=== PATIENT | female | born 1965 | race Caucasian/White ===

== ENCOUNTER 2025-01-23 10:49 | Emergency (ER) | payer MEDICARE ==
[~2025-01-23] VITALS: Ht 160 cm; Wt 77.3 kg
[2025-01-23 10:53] VITALS: TEMP 98.4
--- NOTE | 2025-01-23 10:57 | Physician Documentation ---
History of Present Illness ~ Chief Complaint: Wrist pain Stated Complaint: L WRIST INJURY/FALL Time Seen by MD: 10:56 HPI This 59-year-old female presents to the emergency department after a fall onto the left wrist with resultant pain and swelling noted. Denies loss of c onsciousness or hitting head. Medication Reconciliation Allergies: Uncoded Allergies: FLUROQUINOLONES (Allergy, Unknown, 01/23/25) NARCOTICS (Allergy, Unknown, 01/23/25) Review of Systems ROS As stated above in the HPI, otherwise all systems are reviewed and negative. Physical Exam Vital Signs: Temperature: 98.4, Source: Oral, Heart Rate: 87, Respiratory Rate: 16, BP: 188/86, Pulse Oximetry: 97, Weight: 77.270 Physical Exam General: Alert, no apparent distress. HEENT: PERRL, EOMI, no injection, moist mucous membranes. Neck: Full range of motion. Respiratory: Lungs clear, no respiratory distress. Chest: No accessory muscle use. Cardiovascular: Regular rate and rhythm, no murmurs. Gastrointestinal: Soft, nontender, nondistended. Bowels sounds present. Extremities: Obvious deformity with swelling around the left wrist. Strong radial pulse with brisk cap refill. Neurologic: Oriented x4. Psychiatric: Normal mood and affect. Skin: Normal color, warm and dry. No edema, no ecchymosis. Procedures Procedures Hematoma block accomplished with 4 mL 1% lidocaine. Reduction of impacted radius accomplished. Sugar-tong splint placed to left wrist. Patient tolerated well CMS intact after. Progress Results/Orders Results/Orders Orders - DENEEN HARPER NP Ortho Orders (01/23/25 ) Completed Orders - DENEEN HARPER NP Hydrocodone/Apap 10/325 ([place] 10/325mg (01/23/25 11:20) Ketorolac Trometh 15mg/Ml Vial (Toradol (01/23/25 11:20) Lidocaine 1% 30ml Vial (Xylocaine 1% Via (01/23/25 11:18) Vital Signs 01/23/25 10:53 Temp 98.4 Pulse 87 Resp 16 B/P (MAP) 188/86 Pulse Ox 97 EKG/XRAY/CT/US/VASC/MRI Bone/Soft Tissue X-Ray (Spine) : Additional Comment DIAGNOSTIC RADIOLOGY Patient: RAJAN JOE Medical Record: [id number] [facility] : 1965, Age: 59 Sex: Female Location: ER Patient Status: [facility] ER Service Date/Time: 01/23/25/ 1056 Ordering Physician: JESSA VALERIO DO Exam: WRIST, COMPLETE (3VW MIN) DI WRIST, COMPLETE (3VW MIN), INDICATION: WRIST PAIN TECHNICAL DATA: Frontal , oblique, and lateral views were obtained of the right wrist. COMPARISON: None FINDINGS: Community displaced distal radius fracture and ulnar styloid fracture. Joint spaces are maintained. Alignment is anatomic. Ulnar variance is positive. Soft tissues are within normal limits. IMPRESSION: Communied displaced distal radius fracture and ulnar styloid fracture. Electronically Signed by:LIOR VAZQUEZ MD Date & Time: 01/23/25 1122 Dictated by: LIOR VAZQUEZ MD Dictation date and time: 01/23/25 1107 Primary Care Provider: NO PRIMARY CARE PROVIDER cc: JESSA VALERIO DO ~ Medical Decision Making General Diff Dx:Considerations: Include: Abrasion, Contusion, Fracture, Hematoma, Neurovascular injury, Sprain Departure Time of Disposition: 11:35 Impression: Primary Impression: Closed fracture distal radius and ulna Qualified Codes: S52.502A - Unspecified fracture of the lower end of left radius, initial encounter for closed fracture; S52.602A - Unspecified fracture of lower end of left ulna, initial encounter for closed fracture Additional Impression: Fall Qualified Codes: W19.XXXA - Unspecified fall, initial encounter Discharge Instructions: Cast or Splint Care, Adult, Wrist Fracture Treated With Immobilization Additional Instructions: See your primary care provider within the next couple days and request a referral to ortho for an urgent followup. Leave splint in place. Rest, ice, elevate. Tylenol and Ibuprofen per label instructions as needed for pain. Referrals: NO PRIMARY CARE PROVIDER (PCP) RUBY DE LEON Jr., MD Education Educated: Patient Educated regarding: diagnosis, treatment, prognosis, need for follow up Signature Scribe Signature: no scribe Attestation: The note accurately reflects work and decisions made by me.Deneen Becker NP 01/23/25 11:40 DENEEN HARPER NP January 23, 2025 10:57
--- NOTE | 2025-01-23 11:24 | RADIOLOGY REPORT ---
DI WRIST, COMPLETE (3VW MIN), INDICATION: WRIST PAIN TECHNICAL DATA: Frontal , oblique, and lateral views were obtained of the right wrist. COMPARISON: None FINDINGS: Community displaced distal radius fracture and ulnar styloid fracture. Joint spaces are maintained. A lignment is anatomic. Ulnar variance is positive. Soft tissues are within normal limits. IMPRESSION: Communied displaced distal radius fracture and ulnar styloid fracture.
[2025-01-23] MEDS: ketorolac trometh 15mg/ml vial 15 MG/ML ML IM ONE (11:26)
[2025-01-23] MEDS: HYDROcodone/acetaminophen 10/325mg tab PO ONE (11:26)
[2025-01-23] MEDS: LIDOcaine 1% 30ml preserv. free vial IJ STA (11:55)
[2025-01-23 12:29] VITALS: BP 169/99; PULSE 67; RESP 14; O2SAT 97
== END 2025-01-23 12:42 | disposition home or self-care (01) ==
LOC: ER 10:49
DX: S52.612A Displaced fracture of left ulna styloid process, initial encounter for closed fracture (principal); W19.XXXA Unspecified fall, initial encounter; Y93.89 Activity, other specified; Y92.89 Other specified places as the place of occurrence of the external cause; Y99.8 Other external cause status
CPT/HCPCS: 25605; 73110; 99284; A4565; A6446; A6449; Z7610

== ENCOUNTER 2025-01-26 14:40 | Emergency (ER) | payer MEDICARE ==
[~2025-01-26] VITALS: Ht 160 cm; Wt 67.5 kg
[2025-01-26 15:00] VITALS: TEMP 98.6
--- NOTE | 2025-01-26 15:29 | Physician Documentation ---
History of Present Illness ~ Chief Complaint: Arm Pain Stated Complaint: CAST RECHECK Time Seen by MD: 15:21 HPI This 59-year-old female presents with request for a splint adjustment due to splint that was placed several days ago being uncomfortable on her arm, patient reports she has a forearm fracture after a fall. Patient reports no pain to the arm and no loss of feeling or movement in her fingers distal to the injury. Medication Reconciliation Allergies: Uncoded Allergies: FLUROQUINOLONES (Allergy, Unknown, 01/23/25) NARCOTICS (Allergy, Unknown, 01/23/25) Review of Systems ROS Splint discomfort as stated above in the HPI, otherwise all systems are reviewed and negative. Physical Exam Vital Signs: Temperature: 98.6, Source: Temporal, Heart Rate: 85, Respiratory Rate: 15, BP: 146/87, Pulse Oximetry: 98, Weight: 67.500 Physical Exam VITALS: Reviewed and as above. GENERAL: Alert, nontoxic appearing, no apparent distress. RESPIRATORY: No increased work of breathing, no respiratory distress, speaking in full clear sentences MUSCULOSKELETAL: Left arm in splint, brisk capillary refill to fingers distal to injury, NEURO: Fingers neurovascularly intact distal to injury Progress Results/Orders Results/Orders Orders - ELIDA WALDRON FIRE SUPERVISOR Ortho Orders (01/26/25 ) Vital Signs 01/26/25 01/26/25 01/26/25 15:00 16:43 16:43 Temp 98.6 Pulse 85 85 85 Resp 15 15 15 B/P (MAP) 146/87 146/87 (106) 146/87 Pulse Ox 98 98 98 Medical Decision Making Findings This 59-year-old female presented with discomfort to the splint that was placed on her left arm falling a fall in which she sustained a distal radius fracture, there was not significant pain to the arm and the arm and hand was neurovascularly intact. The splint was removed, arm was inspected with ecchymosis to the distal forearm, a new splint was placed by ED orthopaedic physician assistant. Arm was neurovascularly intact prior to and after splint placement. Patient repo rted new splint as much more comfortable than previous splint. Physical exam was benign and patient is appropriate for outpatient follow up as previously scheduled with orthopedist. Patient provided return to care precautions. General Diff Dx:Considerations: Include: Abrasion, Contusion, Laceration, Neurovascular injury, Other (Compartment syndrome) Departure Disposition: HOME / SELF CARE / HOMELESS Impression: Primary Impression: Closed fracture distal radius and ulna Qualified Codes: S52.502D - Unspecified fracture of the lower end of left radius, subsequent encounter for closed fracture with routine healing; S52. 602D - Unspecified fracture of lower end of left ulna, subsequent encounter for closed fracture with routine healing Condition: Improved Discharge Instructions: Extremity Fracture Additional Instructions: Follow up with the orthopedist as scheduled. Please return to the emergency department for any new or worsening concerning symptoms. Referrals: NO PRIMARY CARE PROVIDER (PCP) Education Educated: Patient Educated regarding: diagnosis, treatment, prognosis, need for follow up Signature Scribe Signature: No scribe Attestation: The note accurately reflects work and decisions made by me.VELASQUEZ Nunez 01/27/25 02:06 ELIDA WALDRON January 26, 2025 15:29
[2025-01-26 16:43] VITALS: BP 146/87; PULSE 85; RESP 15; O2SAT 98
== END 2025-01-26 16:46 | disposition home or self-care (01) ==
LOC: ER 14:41
DX: S52.92XD Unspecified fracture of left forearm, subsequent encounter for closed fracture with routine healing (principal); S52.202D Unspecified fracture of shaft of left ulna, subsequent encounter for closed fracture with routine healing; X58.XXXD Exposure to other specified factors, subsequent encounter
CPT/HCPCS: 29125; 99283; A4565; A6446; A6449

== ENCOUNTER 2025-01-30 09:32 | Emergency (ER) | payer MEDICARE ==
[~2025-01-30] VITALS: Ht 160 cm; Wt 77.3 kg
[2025-01-30 09:42] VITALS: BP 186/80; PULSE 86; RESP 18; O2SAT 98
--- NOTE | 2025-01-30 11:36 | Physician Documentation ---
History of Present Illness ~ Chief Complaint: See Chief Complaint Stated Complaint: LEFT CAST ADJUSTMENT Time Seen by MD: 10:41 [facility] 59-year-old female presents to the ED with a complaint of poorly fitting splint on her left arm. She fell recently and has a fracture but has been unable to see the orthopedic surgeon. That the splint seems to have slid down her arm. Tetanus within 5 years: Yes Medication Reconciliation Allergies: Uncoded Allergies: FLUROQUINOLONES (Allergy, Unknown, 01/23/25) NARCOTICS (Allergy, Unknown, 01/23/25) Review of Systems All Other Systems at this time: Reviewed and Negative ROS As stated above in the HPI, otherwise all systems are reviewed and negative. Constitutional: Reports: no symptoms reported Physical Exam Vital Signs: Temperature: 98.1, Heart Rate: 86, Respiratory Rate: 18, BP: 186/80, Pulse Oximetry: 98, Weight: 77.270 Oxygen Flow Rate: 0 Physical Exam General: Alert, no apparent distress. HEENT: PERRL, EOMI, no injection, moist mucous membranes. Extremities: Left upper extremity is notable for a poorly fitting splint Psychiatric: Normal mood and affect. Skin: Normal color, warm and dry. No edema, no ecchymosis. Progress Results/Orders Results/Orders Vital Signs 01/30/25 01/30/25 09:42 11:51 Temp 98.1 98.1 Pulse 86 Resp 18 B/P (MAP) 186/80 Pulse Ox 98 O2 Flow Rate 0 Medical Decision Making Findings Splint was placed CSM is intact. She will follow up in the outpatient setting Orthopedics. states she has already been referred via her primary care Elbow Diff Dx:Considerations: Include: Abrasion, Arthritis, Contustion, DJD, Fracture-humerus, Fracture-radial head, Fracture-radius, Fracture-ulna, Gout, Hematoma, Laceration, Neurovascular injury, Olecranon bursitis, Open fracture, Osteomyelitis, Radial head subluxation, Rheumatoid arthritis, Septic, Sprain, Ulcer, Other Departure Disposition: 01 HOME / SELF CARE / HOMELESS Impression: Primary Impression: Closed fracture distal radius and ulna Condition: Stable Additional Instructions: Follow up with your referral that she received via your primary care doctor in order to go see orthopedic surgeon for further evaluation. Referrals: NO PRIMARY CARE PROVIDER (PCP) Education Educated: Patient Educated regarding: diagnosis Signature Scribe Signature: G Attestation: The note accurately reflects work and decisions made by me.Donavon Mercado - ZANDRA 01/30/25 15:36 DONAVON MERCADO NP January 30, 2025 11:36
[2025-01-30 11:51] VITALS: TEMP 98.1
== END 2025-01-30 11:53 | disposition home or self-care (01) ==
LOC: ER 09:33
DX: S52.102A Unspecified fracture of upper end of left radius, initial encounter for closed fracture (principal); S52.602A Unspecified fracture of lower end of left ulna, initial encounter for closed fracture; X58.XXXA Exposure to other specified factors, initial encounter; Y93.89 Activity, other specified; Y92.89 Other specified places as the place of occurrence of the external cause; Y99.8 Other external cause status
CPT/HCPCS: 29125; 99281; 99283

== ENCOUNTER 2025-02-14 07:44 | Day surgery (SDC) | payer MEDICARE, OTHER ==
[2025-02-14] VITALS (8 sets, daily range): BP systolic 108–146; BP diastolic 53–73; PULSE 54–82; RESP 7–16; TEMP 98.3; O2SAT 94–97
[~2025-02-14] VITALS: Ht 160 cm; Wt 77.2 kg
[2025-02-14] MEDS: ceFAZolin 2gm/dext,iso 50mL 50 ML IV ONE (05:30)
[~2025-02-14 07:44] MED LIST: BUPIVAcaine/PF 2.5mg/ml (0.25%) 10ml vial ONE; EST1T PO; LIDOcaine 2% (20mg/ml) 5ml vial ONE; MAGN100T PO; PROG200C11 PO; [UNRECOGNIZED DRUG - OTHER] PO
--- NOTE | 2025-02-14 08:41 | ELECTROCARDIOGRAPH REPORT ---
[facility] Test Date: 2025-02-14 Test Time: 08:37:35 Pat Name: RAJAN JOE Department: [facility] Patient ID: [facility]-[id number] Room: Gender: F Family Assistant: EVGENY : 1965 Requested By: HEIDI NOEL Order Number: [id number] Reading MD: Dr. Luz Xie Measurements Intervals [place] Rate: 66 P: 14 OK: 161 QRS: 49 QRSD: 100 T: 14 QT: 419 QTc: 439 Interpretive Statements Sinus rhythm Electronically Signed On 02-14-2025 20:56:[address] Luz Xie Please click the below link to view image of tracing.
[2025-02-14] MEDS ORDERED: ringers solution, lacted 1,000 ML IV SCH (09:00)
[2025-02-14] MEDS ORDERED: ondansetron/PF 4mg/2ml inj IV PRN (09:00)
[2025-02-14] MEDS ORDERED: hydrALAZINE 20mg/ml inj. IV PRN (09:00)
[2025-02-14] MEDS ORDERED: morphine 4 MG/ML inj SYRINge IV PRN (09:00)
[2025-02-14] MEDS ORDERED: fentaNYL/PF 50MCG/1 ML 2ML syringe IV PRN ×2 (09:00)
[2025-02-14] MEDS ORDERED: morphine 2 MG/ML inj. syringe IV PRN (09:00)
[2025-02-14] MEDS ORDERED: labetalol 20mg/4ml (5mg/ml) syringe IV PRN (09:00)
--- NOTE | 2025-02-14 09:03 | ANESTHESIA RECORDS ---
Nerve Block Providers to CC CC: RUBY DE LEON Jr., MD ~ Diagnosis: Nerve Block requested by: RUBY DE LEON Jr., MD Neuraxial/Peripheral Nerve Block requested for Post-operative analgesia by Physician above DIAGNOSIS: Post-operative pain. (Body Area) Shoulder: [ ] Arm: [ ] Hand: [___LEFT ] Hip: [ ] Knee: [ ] Ankle: [ ] Foot: [ ] Leg: [ ] Abdomen: [ ] Other: [ ] Post-operative pain expected to be/is inadequately managed by oral or IV medicines. Regional anesthetic expected to facilitate rehabilitation and/or discharge from facility. Other:[ _] Procedure Performed: Axillary: Left Time out Done?: Yes Time of Time out: 10:00 Procedure Details: PROCEDURE DETAILS: Risks, benefits and alternatives explained Informed consent obtained, and patient wishes to proceed Conscious sedation with indicated monitors Patient positioned, pertinent anatomy defined, sterile technique used Needle used: [ ] 3 1/8 inch Stimuplex Ultra 22ga [ x] 4 inch Stimuplex Ultra 20ga [ ] 6 inch Stimuplex Ultra 20ga [ ] 6 inch, Quikbloc over the needle catheter set 20ga [ ] 4 inch Quikbloc over the needle catheter set 20ga [ ]Other: [ ] Loss of twitch @ [ 0.4 ]mA [x ] Single Injection [ ] Catheter Ultrasound Guidance Used: [x ] Yes [ ] No Attempts:[ 1 ] Medicines injected: [ ]Clonidine Amt:[ ] [ ]Dexamethasone Amt:[ ] [ x ]Ropivacaine Amt:[ ] [ ]Bupivacaine Amt:[ ] [ ]Lidocaine Amt:[ ] [ ]Exparel 1.33%:[ ] [ ]Epinephrine Amt[ ] [ x ]Other: [___DEXMETOMIDINE 50 MCG ] Intermittent aspiration during local anesthetic administration No symptoms of intraneural or intravenous injection Patient tolerated procedure well Comments Left Axilla is examined with Ultrasound and Axillary vessels.Brachial plexus bundles are identified. Needle near bundle,upon positive motor response to nerve stimulation 30 c. clocal mix is distributed..Spread is noted,ultrasound images are captured. Left [place] brachialis muscle is examined,Musculo cutaneous nerve is identified.. Needle near the nerve bundle,positive stimulation response. Local mix is injected. Ultraound image is captured, documented. ALISSON ENCISO MD Feb 14, 2025 09:03
[2025-02-14] MEDS: famotidine 20mg tablet PO ONE (09:20)
[2025-02-14] MEDS: scopolamine 1MG/72H patch 1 PATCH PATCH.TD.3 TD SCH (09:20)
[2025-02-14] MEDS: ringers solution, lacted 1,000 ML IV SCH (09:21)
[2025-02-14 09:38] LABS: BASOPHILS % (AUTO) 0.4 % (0-1); EOSINOPHILS # (AUTO) 0.4 X10'3 (0-0.9); EOSINOPHILS % (AUTO) 4.9 % (0-6); LYMPHOCYTES # (AUTO) 1.3 X10'3 (1.1-4.8); LYMPHOCYTES % (AUTO) 18.5 % (21-51); MEAN CORPUSCULAR HEMOGLOBIN 27.6 PG (27.0-31.0); MEAN CORPUSCULAR HGB CONC 33.1 g/dL (33.0-36.5); MEAN CORPUSCULAR VOLUME 83.3 FL (78-98); MEAN PLATELET VOLUME 7.3 FL (7.4-10.4); MONOCYTES # (AUTO) 0.7 X10'3 (0-0.9); MONOCYTES % (AUTO) 9.5 % (2-12); NEUTROPHILS # (AUTO) 4.8 X10'3 (1.8-7.7); NEUTROPHILS % (AUTO) 66.7 % (42-75); PRE OP HEMATOCRIT 33.8 % (35.0-45.0); PRE OP HEMOGLOBIN 11.2 g/dL (12.0-16.0); PRE OP PLATELET COUNT 452 X10'3 (140-440); PRE OP WHITE BLOOD COUNT 7.2 10'3 (4.8-10.8); RED BLOOD COUNT 4.06 X10'6 (4.20-5.60); RED CELL DISTRIBUTION WIDTH 15.6 % (11.5-14.5)
[2025-02-14 09:52] LABS: ALBUMIN/GLOBULIN RATIO 0.9 (1.1-1.5); ALKALINE PHOSPHATASE 115 IU/L (46-116); BLOOD UREA NITROGEN 12 MG/DL (7-18); BUN/CREATININE RATIO 21.1 (10.0-20.0); CALCIUM 8.4 MG/DL (8.5-10.1); CHLORIDE 105 MMOL/L (99-107); CREATININE 0.57 MG/DL (0.40-0.90); PRE OP ALT 13 U/L (30-65); PRE OP ANION GAP 10 (8-16); PRE OP AST 15 U/L (10-37); PRE OP BILIRUB, TOTAL 0.2 MG/DL (0.0-1.0); PRE OP GLUCOSE 115 MG/DL (70-104); PRE OP SODIUM 141 MMOL/L (135-145); TOTAL CARBON DIOXIDE 26.5 MMOL/L (24-32); TOTAL PROTEIN 6.4 G/DL (6.4-8.2); eCRCL 86 ML/MIN; eGFR > 90 ML/MIN
[2025-02-14 09:56] LABS: PRE OP POTASSIUM 3.2 MMOL/L (3.4-5.1)
[2025-02-14] MEDS ORDERED: BUPIVAcaine/PF 2.5mg/ml (0.25%) 10ml vial ONE (10:16)
[2025-02-14] MEDS ORDERED: propofol inj 20 ML IV ONE (10:40)
[2025-02-14] MEDS ORDERED: dexamethasone sod phosphate 4mg/ml inj. ONE (10:40)
[2025-02-14] MEDS ORDERED: fentaNYL/PF 50MCG/1 ML 2ML syringe ONE ×2 (10:40→11:31)
[2025-02-14] MEDS ORDERED: acetaminophen 1,000mg/100ml IV 100 ML IV ONE (10:40)
[2025-02-14] MEDS ORDERED: ondansetron/PF 4mg/2ml inj ONE (10:40)
[2025-02-14] MEDS ORDERED: LIDOcaine 2% (20mg/ml) 5ml vial ONE (11:14)
[2025-02-14] MEDS ORDERED: sevoflurane 250ml liquid IH ONE (11:19)
--- NOTE | 2025-02-14 15:05 | OPERATIVE REPORT ---
Operative Report Providers to ~ Date of Procedure: Feb 14, 2025 Pre-Operative Diagnosis: Left distal radius fracture closed Post-Operative Diagnosis SAME as PRE-Op Procedure Performed Left wrist distal radius fracture with articular extension. Surgeon: Benjamin Wallace MD Ict Customer Support Officer None Anesthesiologist: Kaushal Luz Type of Anesthesia: General Findings: Prosthetics\Implants used: Bone bridge standard distal radius plate and screws Estimated Blood Loss: None Specimen Removed: None Description of Procedure: The patient is a 59 year old with an unstable left distal radius fracture that is over 3 weeks old. There was significant shortening and dorsal angulation. Surgery is indicated to improve function and prevent deformity. The risks, benefits, expected results, and possible complications of the planned procedure had been explained to the patient and informed consent obtained. After the block was administered, the tourniquet was inflated on the upper arm and the arm was prepped and draped, an incision was made over the flexor carpi radialis tendon, with an interval in the deeper tissues between it and the radial artery. The pronator Quadratus was elevated off the distal radius, exposing the fracture. The fracture was eventually reduced with traction, instrumentation, and bone clamps. The BONE BRIDGE distal radius locking plate was used, affixed over the fracture, with proximal screws. After confirming position on C-arm, the extra and intra articular fracture was reduced to the plate and held with distal locking screws, stabilizing the articular surface. Final fluoro imaging was done, confirming screw placement and reduction. The wound was irrigated and closed in layers. A sterile dressing was applied, followed by a short arm plaster splint. The tourniquet was released and the patient was returned to the PACU in stable condition. Sponge and needle counts were correct. BENJAMIN WALLACE Jr., MD Feb 14, 2025 15:05
== END 2025-02-14 12:50 | disposition home or self-care (01) ==
LOC: PAS 07:44
PROVIDERS: ATTEND Orthopaedic Surgery Hand Surgery
DX: S52.572A Other intraarticular fracture of lower end of left radius, initial encounter for closed fracture (principal); W01.0XXA Fall on same level from slipping, tripping and stumbling without subsequent striking against object, initial encounter; X58.XXXA Exposure to other specified factors, initial encounter; Y93.89 Activity, other specified; Y92.89 Other specified places as the place of occurrence of the external cause; Y99.8 Other external cause status; J44.9 Chronic obstructive pulmonary disease, unspecified; Z88.8 Allergy status to other drugs, medicaments and biological substances; Z79.899 Other long term (current) drug therapy; G89.18 Other acute postprocedural pain
CPT/HCPCS: 25608; 36415; 64415; 80053; 82948; 85025; 93005; A4215; A4618; A6222; A6402; A6449; A7000; C1713; J0131; J1100; J1885; J2003; J2405; J2704; J3010; J3490; J7030; J7120; Z7506; Z7508; Z7512; Z7610